=== PATIENT | female | born 1995 | race Caucasian/White ===

== ENCOUNTER 2017-08-02 12:12 | Emergency (ER) | payer MEDICAID ==
[~2017-08-02] VITALS: Ht 170.2 cm; Wt 95.0 kg
[2017-08-02 12:14] VITALS: BP 145/83; PULSE 82; RESP 18; TEMP 99; O2SAT 99
[2017-08-02] MEDS ORDERED: IBUPROFEN 600 MG TAB PO ONE ×2 (12:45)
[2017-08-02] MEDS ORDERED: ACETAMINOPHEN 500 MG CPLT PO ONE ×2 (12:45)
[2017-08-02] MEDS ORDERED: CYCLOBENZAPRINE HCL 10 MG TAB PO ONE ×2 (12:45)
--- NOTE | 2017-08-02 13:06 | PD ---
HPI Chief Complaint: Back/ Neck Pain or Injury Time Seen by Provider: 12:31 Travel History International Travel<30 days: No Contact w/Intl Traveler<30days: No Traveled to known affect area: No History of Present Illness HPI 22-year-old female presents the emergency department with lower lumbar pain with radiation to both sides past 5 days. Patient states she was working at a [employer] on Sunday but can't remember doing any specific to cause her pain. Now she has pain, stiffness, which is worse at night when she first gets up. She denies numbness, tingling, urinary symptoms, vaginal symptoms. No fever, no chills. No radiation down both legs. Patient was seen at [facility] and had x-rays and given tramadol 100 mg which did not help. She tried 2 ibuprofen on Sunday but none since. She has no history of chronic back pain in the past. She has no known drug allergies. PFSH Past Medical History ?: Not LMP: 07/05/17 Social History Alcohol Use: No Tobacco Use: No Substance Use: No Allergies-Medications (Allergen,Severity, Reaction): Coded Allergies: No Known Allergies (Unverified , 08/02/17) Review of Systems Except as stated in HPI: all other systems reviewed are Neg General / Constitutional: No: Fever Eyes: No: Visual changes HENT: No: Headaches Cardiovascular: No: Chest Pain or Discomfort Respiratory: No: Shortness of Breath Gastrointestinal: No: Abdominal Pain Genitourinary: No: Dysuria Musculoskeletal: Positive: Myalgias, Limited ROM, Pain Skin: No Rash Neurologic: No: Weakness Psychiatric: No: Depression Endocrine: No: Polydipsia Hematologic/Lymphatic: No: Easy Bruising Physical Exam Narrative GENERAL: Patient appears in mild to moderate distress SKIN: Warm and dry. Normal color. Normal turgor. No rash. HEAD: Atraumatic. Normocephalic. EYES: Pupils equal and round. No scleral icterus. No injection or drainage. ENT: No nasal bleeding or discharge. Mucous membranes pink and moist. Pharynx is clear. Airway is patent. NECK: Trachea midline. Supple and nontender. CARDIOVASCULAR: Regular rate and rhythm. RESPIRATORY: No accessory muscle use. Clear to auscultation. Breath sounds equal bilaterally. MUSCULOSKELETAL: Extremities without clubbing, cyanosis, or edema. No obvious deformities. Patient has soft tissue tenderness along the lumbar spine bilaterally but no bony tenderness or extension into the sciatic notch. Negative straight leg raise pain bilaterally. No lower extremity weakness is noted. Deep tendon reflexes are 2+ and equal bilaterally. NEUROLOGICAL: Awake and alert. No obvious cranial nerve deficits. Motor grossly within normal limits. Five out of 5 muscle strength in the arms and legs. Normal speech. PSYCHIATRIC: Appropriate mood and affect; insight and judgment normal. Data Data Last Documented VS Vital Signs Date Time Temp Pulse Resp B/P (MAP) Pulse Ox O2 Delivery O2 Flow Rate FiO2 08/02/17 12:14 99.0 82 18 145/83 (103) 99 Orders Orders Acetaminophen (Tylenol) (08/02/17 12:45) Ibuprofen (Motrin) (08/02/17 12:45) Cyclobenzaprine (Flexeril) (08/02/17 12:45) [facility] Medical Decision Making Medical Screen Exam Complete: Yes Emergency Medical Condition: Yes Differential Diagnosis Lumbar strain. Muscle spasm. Lumbago Narrative Course Patient is given 600 mg ibuprofen, 1000 mg Tylenol, and 10 mg Flexeril by mouth now. Patient continued on Flexeril 10 mg up to 3 times daily #15. Patient given ibuprofen 600 mg 4 times a day #40. Patient given acetaminophen 500 mg, 2 tablets 4 times a day when necessary #80. Patient is to use heat, ice, gentle stretching as discussed. Work note is given until Sunday. Patient to follow up if symptoms do not improve or worsen as needed. Diagnosis Primary Impression: Acute lumbar myofascial strain Qualified Codes: S39.012A - Strain of muscle, fascia and tendon of lower back , initial encounter Referrals: [facility] Patient Instructions: General Instructions Departure Forms: Work Release Enter return to work date: Aug 06, 2017 Additional Instructions: Patient continued on Flexeril 10 mg up to 3 times daily #15. Patient given ibuprofen 600 mg 4 times a day #40. Patient given acetaminophen 500 mg, 2 tablets 4 times a day when necessary #80. Patient is to use heat, ice, gentle stretching as discussed. Work note is given until Sunday. Patient to follow up if symptoms do not improve or worsen as needed. Med/Other Pt SpecificInfo: Prescription(s) given Disposition: 01 DISCHARGE HOME Condition: Stable Karl Justin Aug 02, 2017 13:06
[2017-08-02] MEDS ORDERED: IBUP-232 PO ×2 (13:07)
[2017-08-02] MEDS ORDERED: MAPA500T13 PO ×2 (13:07)
[2017-08-02] MEDS ORDERED: CYCL1TAB29 PO ×2 (13:07)
== END 2017-08-02 13:29 | disposition home or self-care (01) ==
LOC: NEPK 12:12
DX: S39.012A Strain of muscle, fascia and tendon of lower back, initial encounter (principal); X58.XXXA Exposure to other specified factors, initial encounter
CPT/HCPCS: 99283